=== PATIENT | female | born 2000 | race Asian ===

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

== ENCOUNTER 2020-06-10 15:54 | Emergency (ER) | payer OTHER ==
[~2020-06-10] VITALS: Ht 160 cm; Wt 96.2 kg
[2020-06-10 17:25] LABS: PLATELET COUNT 143 K/uL (152-353)
[2020-06-10 17:36] LABS: POTASSIUM 4.1 mmol/L (3.6-5.2)
[2020-06-10 22:27] VITALS: BP 137/80; TEMP 99.1
== END 2020-06-10 22:28 | disposition home or self-care (01) ==
LOC: ED 15:54
PROVIDERS: Emergency Medicine
DX: F32.89 Other specified depressive episodes (principal); R45.851 Suicidal ideations
CPT/HCPCS: 80053; 80307; 80320; 80329; 81000; 81025; 85027; 93005; 99285

== ENCOUNTER 2020-07-04 19:24 | Emergency (ER) | payer OTHER ==
[~2020-07-04] VITALS: Ht 160 cm; Wt 96.2 kg
[2020-07-04 19:48] VITALS: BP 124/75; TEMP 98.2
== END 2020-07-04 20:47 | disposition home or self-care (01) ==
LOC: ED 19:24
DX: F41.8 Other specified anxiety disorders (principal)
CPT/HCPCS: 99282; 99283

== ENCOUNTER 2022-05-28 00:25 | Emergency (ER) | payer OTHER ==
[~2022-05-28] VITALS: Ht 160 cm; Wt 105.2 kg
[2022-05-28] MEDS ORDERED: NYST100010 EX (00:48)
[2022-05-28] MEDS ORDERED: PANTOPRAZOLE SO40 M1 PO (00:50)
[2022-05-28 01:28] VITALS: BP 118/72; TEMP 98
== END 2022-05-28 01:28 | disposition home or self-care (01) ==
LOC: ED 00:25
PROC: 09C47ZZ Extirpation of Matter from Left External Auditory Canal, Via Natural or Artificial Opening (ICD-10-PCS; principal; 2022-05-28)
DX: T16.2XXA Foreign body in left ear, initial encounter (principal); B37.3 Candidiasis of vulva and vagina; X58.XXXA Exposure to other specified factors, initial encounter; Y92.89 Other specified places as the place of occurrence of the external cause
CPT/HCPCS: 99282

== ENCOUNTER 2022-09-04 14:38 | Emergency (ER) | payer OTHER ==
[~2022-09-04] VITALS: Ht 160 cm; Wt 103.0 kg
[~2022-09-04 14:38] MED LIST changes: +NYST100010 EX; +PANTOPRAZOLE SO40 M1 PO
[2022-09-04 14:40] VITALS: TEMP 98.3
[2022-09-04 15:41] VITALS: BP 118/62
== END 2022-09-04 15:41 | disposition home or self-care (01) ==
LOC: ED 14:38
DX: M79.18 Myalgia, other site (principal)
CPT/HCPCS: 96372; 99282; J1885